=== PATIENT | female | born 1980 | race Caucasian/White ===

== ENCOUNTER 2020-02-15 17:41 | Emergency (ER) | payer OTHER ==
[2020-02-15 18:06] VITALS: BP 146/88
[2020-02-15] MEDS ORDERED: BUPIVACAINE/PF (0.25%) 2.5 MG/ML 10 ML VIAL INFILTRATI ONE (20:15)
[2020-02-15] MEDS ORDERED: LIDOCAINE (2%) 20 MG/1 ML VIAL 20 ML MDV INFILTRATI ONE (20:35)
[2020-02-15] MEDS ORDERED: DIPHtheria,PERTUSSIS(ACELL),TETANUS VACCINE/PF 0.5 ML VIAL IM ONE (20:35)
--- NOTE | 2020-02-15 20:36 | Emergency Department Report ---
- General Chief Complaint: Wound/Laceration Stated Complaint: FINGER LAC Time Seen by Provider: 02/15/20 20:34 Source: patient Mode of arrival: Ambulatory Limitations: Language Barrier - History of Present Illness Initial Comments: Puerto Rican interpretation by Jess patient corporate representative Patient is a 39-year-old female presents emergency room with complaints of a laceration to the left middle finger that occurred at 4:55 PM. Patient states that she was cutting onions and accidentally cut herself with a kitchen knife. She states that initially there was bleeding but she placed gauze and the bleeding improved. She is still able to move the finger. She denies any numbness or weakness. She is unsure of her last tetanus immunization. She denies any past medical history. No allergies to medications. Last menstrual cycle 01/28/2020 - Related Data Previous Rx's Medication Instructions Recorded Last Taken Type Naproxen [EC-Naproxen] 500 mg PO BID PRN #14 tablet. 02/15/20 Unknown Rx cephALEXin [Keflex] 500 mg PO QID 7 Days #28 cap 02/15/20 Unknown Rx Allergies Allergy/AdvReac Type Severity Reaction Status Date / Time No Known Allergies Allergy Unverified 02/15/20 18:00 ED Review of Systems ROS: Stated complaint: FINGER LAC Other details as noted in HPI Comment: All other systems reviewed and negative ED Past Medical Hx - Past Medical History Previous Medical History?: Yes Hx Hypertension: Yes Hx Diabetes: Yes - Social History Smoking Status: Never Smoker Substance Use Type: None - Medications Home Medications: Home Medications Medication Instructions Recorded Confirmed Last Taken Type Naproxen [EC-Naproxen] 500 mg PO BID PRN #14 tablet. 02/15/20 Unknown Rx cephALEXin [Keflex] 500 mg PO QID 7 Days #28 cap 02/15/20 Unknown Rx ED Physical Exam - General Limitations: Language Barrier General appearance: alert, in no apparent distress - Head Head exam: Present: atraumatic, normocephalic - Eye Eye exam: Present: normal appearance - ENT ENT exam: Present: mucous membranes moist - Respiratory Respiratory exam: Absent: respiratory distress, accessory muscle use - Extremities Exam Extremities exam: Present: other (2 cm flap like laceration present to the dorsal surface of the distal left middle finger just inferior to the nail, no nail involvement, no active bleeding, no foreign body, no muscle/tendon involvement, FROM of the left hand and digits, neurovasculalry intact, no bony ttp) - Neurological Exam Neurological exam: Present: alert, oriented X3 - Psychiatric Psychiatric exam: Present: normal affect, normal mood - Skin Skin exam: Present: warm, dry ED Course Vital Signs 02/15/20 18:00 Temperature 98.2 F Pulse Rate 91 H Respiratory 20 Rate Blood Pressure 146/88 O2 Sat by Pulse 98 Oximetry - Laceration /Wound Repair Left Dorsal Finger Wound Location: upper extremity (dorsal surface left middle finger just superior to the nail) Wound Length (cm): 2 Wound's Depth, Shape: flap Wound Explored: clean Irrigated w/ Saline (ccs): 100 Betadine Prep?: Yes Volume Anesthetic (ccs): 8 (4 cc of 1% lidocaine without epinephrine, 4 cc of 0.25% bupivacaine without epinephrine mixture) Wound Debrided: moderate Wound Repaired With: sutures Suture Size/Type: 4:0, proline Number of Sutures: 4 Layer Closure?: No Sterile Dressing Applied?: Yes Progress: Wound irrigated with saline and thoroughly scrubbed with Betadine, digital block performed using 1% lidocaine and 0.25% bupivacaine mixture, a total of 8 cc was used, aspirated to ensure not inside the vessel, good anesthesia achieved, Betadine prep again, sterile drapes applied, sterile gloves worn, 4-0 Prolene used for skin closure, 4 sutures placed, patient tolerated well, no complications, bleeding controlled, sterile dressing applied ED Medical Decision Making - Medical Decision Making [place]ican interpretation by Jess, patient corporate representative Patient is a 39-year-old female presents emergency room with complaints of a laceration to the left middle finger that occurred at 4:55 PM. Patient states that she was cutting onions and accidentally cut herself with a kitchen knife. She states that initially there was bleeding but she placed gauze and the bleeding improved. She is still able to move the finger. She denies any numbness or weakness. She is unsure of her last tetanus immunization. She denies any past medical history. No allergies to medications. Last menstrual cycle 01/28/2020. VSS. on exam:2 cm flap like laceration present to the dorsal surface of the distal left middle finger just inferior to the nail, no nail involvement, no active bleeding, no foreign body, no muscle/tendon involvement, FROM of the left hand and digits, neurovasculalry intact, no bony ttp. Laceration repaired per procedure note without any complications. Patient given Tdap while in the emergency department. Patient given prescription for Keflex and naproxen. Advised patient Please take medication as prescribed. Please keep area clean, dry, covered. Wash with antibacterial soap and water and pat dry. No hot tub, no pool. sutures will need to be removed within 10 days. May return to the emergency room for suture removal or follow-up with the clinic. Return to emergency room for any new or worsening symptoms. Critical care attestation.: If time is entered above; I have spent that time in minutes in the direct care of this critically ill patient, excluding procedure time. ED Disposition Clinical Impression: Laceration of left middle finger Qualifiers: Encounter type: initial encounter Damage to nail status: without damage Foreign body presence: without foreign body Qualified Code(s): S61.213A - Laceration without foreign body of left middle finger without damage to nail, initial encounter Disposition: TO HOME OR SELFCARE Is pt being admited?: No Does the pt Need Aspirin: No Condition: Stable Instructions: Laceration Care, Adult Additional Instructions: Please take medication as prescribed. Please keep area clean, dry, covered. Wash with antibacterial soap and water and pat dry. No hot tub, no pool. sutures will need to be removed within 10 days. May return to the emergency room for suture removal or follow-up with the clinic. Return to emergency room for any new or worsening symptoms. [place] los medicamentos segn lo prescrito. Mantenga el roberto limpia, seca y cubierta. Dylan con agua y jabn antibacteriano y secar. Sin baera de hidromasaje, sin piscina. las suturas debern retirarse dentro de los 10 solorzano. Puede regresar a la [facility] para la extraccin de suturas o seguimiento con la clnica. Regrese a la [facility] por cualquier sntoma nuevo o que empeore. clinic: [facility] Address: [address] [place] [address], [place] [address] Prescriptions: Naproxen [EC-Naproxen] 500 mg PO BID PRN #14 tablet. PRN Reason: pain cephALEXin [Keflex] 500 mg PO QID 7 Days #28 cap Referrals: [facility]SE[facility] [Primary Care Provider] - 2-3 Days Forms: Work/School Release Form(ED) Time of Disposition: 20:41 Print Language: SLOVENIAN
== END 2020-02-15 21:17 | disposition home or self-care (01) ==
LOC: ED 17:41
DX: S61.213A Laceration without foreign body of left middle finger without damage to nail, initial encounter (principal); I10 Essential (primary) hypertension; E11.9 Type 2 diabetes mellitus without complications; Z79.899 Other long term (current) drug therapy; W26.0XXA Contact with knife, initial encounter; Y93.89 Activity, other specified; Y92.89 Other specified places as the place of occurrence of the external cause; Y99.8 Other external cause status
CPT/HCPCS: 90471; 90715; 99282